=== PATIENT | male | born 1950 ===

== ENCOUNTER 2019-05-28 06:11 | Day surgery (SDC) | payer MEDICAID ==
[2019-05-28] MEDS ORDERED: LACTATED RINGERS 1,000 ML ONE (07:27)
[2019-05-28] MEDS ORDERED: MARCAINE-EPI 0.5%-1:200,000 INFILTRATI ONE ×2 (07:29→09:10)
[2019-05-28] MEDS ORDERED: SUBLIMAZE IV PRN (07:31)
[2019-05-28] MEDS ORDERED: TYLENOL PO NR (07:31)
[2019-05-28] MEDS ORDERED: DILAUDID IV PRN (07:31)
[2019-05-28] MEDS ORDERED: ZOFRAN IV PRN (07:31)
--- NOTE | 2019-05-28 07:39 | Anesthesia Day of Surgery ---
Anesthesia Day of Surgery - Day of Surgery Patient Examined: Yes Patient H&P Reviewed: Yes Patient is NPO: Yes Beta Blockers: No (D/C'd propranolol one week ago)
--- NOTE | 2019-05-28 07:40 | Anesthesia Consultation ---
Anesthesia Consult and Med Hx Date of service: 05/28/19 - Airway Anesthetic Teeth Evaluation: Dentures, Edentulous ROM Head & Neck: Adequate Mental/Hyoid Distance: Adequate Mallampati Class: Class II Intubation Access Assessment: Good - Pre-Operative Health Status ASA Pre-Surgery Classification: ASA2 Proposed Anesthetic Plan: General - Pulmonary Hx Smoking: No Hx Sleep Apnea: No (MUMTAZ PRE SCREEN HIGH RISK) - Cardiovascular System Hx Hypertension: Yes (X 7 YRS) - Other Systems Hx Cancer: No - Additional Comments Anesthesia Medical History Comments: +Med clearance
[2019-05-28] MEDS ORDERED: VERSED ONE (07:50)
[2019-05-28] MEDS ORDERED: SUBLIMAZE ONE ×2 (07:51→07:52)
[2019-05-28] MEDS ORDERED: DIPRIVAN 10 MG/ML IV ONE (07:51)
[2019-05-28] MEDS ORDERED: ZEMURON IV ONE (07:54)
[2019-05-28] MEDS ORDERED: XYLOCAINE MPF 2% ONE (07:55)
[2019-05-28] MEDS ORDERED: NEURONTIN PO NR (08:00)
[2019-05-28] MEDS ORDERED: LACTATED RINGERS 1,000 ML IV SCH (08:00)
[2019-05-28] MEDS ORDERED: ceFAZolin 2 GM in NACL 0.9% 100 ML IV ONE (08:00)
[2019-05-28] MEDS ORDERED: ROBINUL ONE ×3 (08:30→09:59)
[2019-05-28] MEDS ORDERED: ZOFRAN ONE (09:02)
[2019-05-28] MEDS ORDERED: BLOXIVERZ ONE (09:09)
--- NOTE | 2019-05-28 09:14 | Discharge Summary ---
Short Stay Discharge Plan Activity: other (observe x 4 hrs then february d/c if stable and able to void. keep dressing covered until seen in office. abd binder x 3 wks) Diet: other (ice chips today. cl liq in am. solid high fiber diet in 48hrs. ) Wound: keep clean and dry (keep dry x 5 days) Special Instructions: no heavy lifting (no lifting over 5 lbs x 3 wks) Additional Instructions: aleve I po q 6-8 hrs prn for breakthrough pain. surfak q am x 3 Follow up with: RIKI GOMEZ MD [Staff Physician] - 06/01/19
[2019-05-28] MEDS ORDERED: ROBINUL IV ONE (10:00)
--- NOTE | 2019-05-28 10:31 | Post Anesthesia Evaluation ---
- Post Anesthesia Evaluation Patient Participated: Yes Airway Patent: Yes Stable Respiratory Function: Yes Nausea/Vomiting: No Temp > 96.8F: Yes Pain Manageable: Yes Adequeate Hydration: Yes Anesthesia Complications: No Block Receding Appropriately: Not Applicable Patient on Ventilator: No
--- NOTE | 2019-05-28 10:41 | Operative Report ---
PREOPERATIVE DIAGNOSIS: Large ventral hernia. POSTOPERATIVE DIAGNOSIS: Large ventral hernia with incarcerated omentum. PROCEDURES: 1. Open ventral hernia repair with mesh. 2. Partial omentectomy. SURGEON: Marito Jacob MD ANESTHESIA: General. ESTIMATED BLOOD LOSS: Minimal. DRAINS: No drains. COMPLICATIONS: No complications. PROCEDURE IN DETAIL: The patient was taken to the operating room, prepped and draped in the usual sterile fashion. A curvilinear infraumbilical incision was made down to the fascia. Incarcerated omentum was noted throughout the subcu. A slow dissection was carried out until the omentum was able to be freed. The omentum could not be completely reduced, thus partial omentectomy was performed. Portions of the omentum were sent as specimen. The rest of the omentum was then able to be returned to the peritoneal cavity. The undersurface of the peritoneum was palpated and no evidence of any other incarcerated omentum or intestine was noted. The fascial defect was then repaired with interrupted #1 Surgilon suture. Area was then irrigated copiously and dried. I checked for hemostasis and noted to be dry. An onlay of Marlex mesh was placed over the repair. The mesh was secured to the fascia with interrupted 2-0 Vicryl suture. Once again, the area was irrigated copiously and dried. Checked for hemostasis and noted to be dry. Subcutaneous was closed with interrupted 3-0 Vicryl suture. Skin was closed with running subcuticular 4-0 Vicryl. A 0.5% Marcaine was infiltrated over the fascia, subcutaneous, and skin for postoperative pain relief. Fluffs, pressure dressing and abdominal binder were placed. The patient tolerated the procedure well and left the OR in stable condition. JOB# [id number] [place]
[2019-05-28] MEDS ORDERED: NORCO 5/325 PO PRN (11:36)
[2019-05-28 13:30] VITALS: BP 152/62
== END 2019-05-28 13:25 | disposition home or self-care (01) ==
LOC: OR 06:11
PROVIDERS: ATTEND Surgery
DX: K43.6 Other and unspecified ventral hernia with obstruction, without gangrene (principal); E78.00 Pure hypercholesterolemia, unspecified; I10 Essential (primary) hypertension; Z98.890 Other specified postprocedural states; Z79.899 Other long term (current) drug therapy; Z79.82 Long term (current) use of aspirin; Z86.73 Personal history of transient ischemic attack (TIA), and cerebral infarction without residual deficits
CPT/HCPCS: 49561; 49568; 88304; C1781; J2250; J2405; J2704; J2710; J3010; J7120; 88305